=== PATIENT | female | born 1975 | race Caucasian/White ===

== ENCOUNTER 2018-11-19 21:19 | Emergency (ER) | payer SELFPAY ==
[~2018-11-19] VITALS: Ht 162.6 cm; Wt 84.0 kg
[2018-11-19] MEDS ORDERED: IBUPROFEN 600MG TABLET PO STA (22:13)
[2018-11-20 01:02] VITALS: BP 149/86
== END 2018-11-20 01:05 | disposition home or self-care (01) ==
LOC: ER 21:19
DX: S89.81XA Other specified injuries of right lower leg, initial encounter (principal); S99.821A Other specified injuries of right foot, initial encounter; M54.5 Low back pain; Z88.8 Allergy status to other drugs, medicaments and biological substances; W01.0XXA Fall on same level from slipping, tripping and stumbling without subsequent striking against object, initial encounter; Y93.89 Activity, other specified; Y92.89 Other specified places as the place of occurrence of the external cause; Y99.8 Other external cause status
CPT/HCPCS: 72100; 73562; 73660; 81025; 99283